=== PATIENT | female | born 1980 | race Hispanic/Latino ===

== ENCOUNTER 2024-09-12 06:27 | Emergency (ER) | payer BC, SELFPAY ==
[2024-09-12 07:02] LABS: Absolute Eosinophils 0.2 K/uL (0-0.5); Absolute Lymphocytes (CBC) 2.3 K/uL (0.7-4.9); Absolute Monocytes 0.5 K/uL (0.1-1.3); Absolute Neutrophil 4.7 K/uL (1.8-8.0); Basophils % 0.4 % (0-1.3); Eosinophils % 2.5 % (0-4.4); Hematocrit 41.6 % (36.0-45.0); Lymphocytes % 29.5 % (15.3-44.8); MCH 32.1 pg (27.0-35.0); MCHC 33.8 g/dL (32.0-36.0); MCV 94.9 fL (80-100); MPV 8.6 fL (7.6-11.3); Monocytes % 6.6 % (3.3-12.3); Platelets 345 thou/uL (152-406); RBC Red Blood Cell Count 4.38 M/uL (3.86-4.86); Red Cell Distribution Width 13.9 % (12.1-15.2)
[2024-09-12 07:11] LABS: Specific Gravity 1.024 (1.005-1.030); Sqamous Epithelial <5 /HPF (None Seen); Urine Bacteria <20 /HPF (<20); Urine Bilirubin NEGATIVE (Negative); Urine Blood 2+ (Negative); Urine Clarity Turbid (Clear); Urine Color Yellow (Yellow); Urine Crystals Unidentified Few /HPF (None Seen); Urine Culture Reflex Order NOT NEEDED; Urine Glucose NEGATIVE (Negative); Urine Ketones 1+ (Negative); Urine Microscopic Reflex YN ORDER UMIC; Urine Mucus 2+ /HPF (None Seen); Urine Nitrite NEGATIVE (Negative); Urine Protein TRACE (Negative); Urine Urobilinogen Normal (Normal); Urine WBC <5 /HPF (<5)
[2024-09-12 07:12] LABS: Specific Gravity 1.024 (1.005-1.030)
[2024-09-12 07:15] LABS: Albumin 3.8 g/dL (3.4-5.0); Albumin/Globulin Ratio 1.1 (1.1-1.8); Anion Gap 9.4 mEq/L (5.0-15.0); Bilirubin Total 0.5 mg/dL (0.2-1.0); Globulin 3.4 g/dL (2.3-3.5); Potassium 3.4 mEq/L (3.5-5.1); Protein, Total 7.2 g/dL (6.4-8.2)
--- NOTE | 2024-09-12 07:37 | RAD REPORT ---
EXAMINATION: CT ABDOMEN AND PELVIS WITH CONTRAST CLINICAL INDICATION: ABD PAIN TECHNIQUE: CT abdomen and pelvis was performed, after the administration of IV contrast, as per [facility] protocol. Axial, sagittal and coronal reconstructions were obtained. One or more of the following dose reduction techniques were used: Automated exposure control, adjustment of the mA and k V according to patient size, and iterative reconstruction. Unless otherwise specified, incidental findings do not require dedicated imaging follow-up. COMPARISON: No prior exam. FINDINGS: LOWER CHEST: The visualized lung bases are clear. LIVER: Normal in size and contour. No focal lesion. Grossly unremarkable gallbladder. SPLEEN: Normal size. No focal lesion. PANCREAS: No mass, ductal dilation, or prem-pancreatic fluid. ADRENALS: Normal; no mass. KIDNEYS: Normal size and contour. No hydronephrosis. GASTROINTESTINAL TRACT: No evidence of free air, significant intra-abdominal free fluid, bowel obstru ction or abscess. APPENDIX: Normal appendix. LYMPH NODES: No lymphadenopathy. MUSCULOSKELETAL: No acute or suspicious osseous abnormality. ADDITIONAL FINDINGS: None. IMPRESSION: No acute or concerning abnormalities seen in the abdomen or pelvis.
--- NOTE | 2024-09-12 07:44 | RAD REPORT ---
EXAM: Right upper quadrant ultrasound. CLINICAL HISTORY: ABD PAIN COMPARISON: CT study same date FINDINGS: Gallbladder: Normal. Bile ducts: No intrahepatic or extrahepatic biliary dilatation. Common bile duct measures 6 mm. Limited imaging of the liver shows no concerning finding. IMPRESSION: Unremarkable exam.
--- NOTE | 2024-09-12 07:55 | EDPHYS ---
Physician Documentation [facility] Chris Name: Ashley Huang Age: 43 yrs Sex: Female : 1980 Arrival Date: 09/12/2024 Time: 06:27 Bed 7 Private MD: ED Physician Valdemar Jefferson HPI: 09/12 06:51 This 43 yrs old Female presents to ER via Unassigned with complaints of rn Abdominal Pain, Low Back Pain, Nausea/Vomiting. 06:51 The patient presents with abdominal pain in the epigastric area, in the right upper rn quadrant. Onset: The symptoms/episode began/occurred 12 day(s) ago. The symptoms do not radiate. Associated signs and symptoms: Pertinent positives: nausea, Pertinent negatives: blood in stools, fever. Modifying factors: The symptoms are alleviated by nothing, the symptoms are aggravated by food, spicy food, touching the area. Severity of pain: At its worst the pain was moderate in the emergency department the pain has improved. The patient has experienced similar episodes in the past. The patient has not recently seen a physician. Patient reports right upper quadrant and epigastric abdominal pain that began 12 days ago. Is intermittent, worse with food and spicy food and touching area. Associated with nausea. No blood in stool. No fever or chills. Has had gallstones in the past but declined surgery at that time. This feels similar per patient.. 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 - Infectious Disease History:: Denies. - Family history:: not pertinent. - Social history:: Smoking status: Patient denies any tobacco usage or history of. - Hospitalizations: : No recent hospitalization is reported. ROS: 06:51 Constitutional: Negative for fever, chills, and weight loss, Cardiovascular: Negative rn for chest pain, palpitations, and edema, Respiratory: Negative for shortness of breath, cough, wheezing, and pleuritic chest pain, Abdomen/GI: Positive for abdominal pain with nausea Back: Negative for injury and pain, : Negative for injury, bleeding, discharge, and swelling, MS/Extremity: Negative for injury and deformity, Skin: Negative for injury, rash, and discoloration, Neuro: Negative for headache, weakness, numbness, tingling, and seizure, Exam: 06:51 Constitutional: This is a well developed, well nourished patient who is awake, alert, rn and in no acute distress. Cardiovascular: Regular rate and rhythm. No pulse deficits. Respiratory: No increased work of breathing, no retractions or nasal flaring. Abdomen/GI: Soft, tender right upper quadrant, negative Dumont, slight tenderness epigastrium as well. No distention. Vital Signs: 06:47 BP 141 / 99; Pulse 93; Resp 18; Temp 97.1; Pulse Ox 99% ; Weight 90.72 kg; Height 5 ft. vc1 1 in. ; Pain 8/10; 08:13 BP 138 / 87; Pulse 75; Resp 16; Pulse Ox 99% ; Pain 8/10; ll1 08:42 BP 131 / 80; Pulse 73; Resp 16; Pulse Ox 100% ; ll1 09:50 BP 123 / 79; Pulse 77; Resp 16; Pulse Ox 100% ; ll1 06:47 Body Mass Index 37.79 (90.72 kg, 154.94 cm) vc1 06:47 Pain Scale: Adult vc1 08:13 Pain Scale: Adult ll1 MDM: 06:37 Medical Screening Exam initiated rn 07:07 Data reviewed: vital signs, nurses notes. ED course: Patient signed out to me by ec2 previous physician, in brief arrives today for abdominal pain and back pain. Plans to follow-up lab work, ultrasonography and CT scan of the chest. Differential diagnosis considered include processes such as pancreatitis, gallbladder pathology. 07:22 ED course: Metabolic profile shows slight hypokalemia 3.4. Urine is noninfectious ec2 appearing. Lipase within normal ranges. testing negative. CBC reassuring.. 07:54 ED course: Ultrasound and CT imaging are negative. On reassessment patient is ec2 well-appearing no acute distress. Suspect possible gastritis. Will have the patient follow-up with GI. Return precautions given.. 10:11 ED course: Patient expressed dissatisfaction regarding normal lab work and ec2 ultrasonography, I instructed her that she needs a follow-up with her primary care doctor as well as her general surgeon electively as there is no emergent process identified. Patient ultimately dissatisfied, hostile and appropriate for discharge. 09/12 06:40 Order name: CBC with Diff; Complete Time: 07:05 rn 09/12 06:40 Order name: CMP; Complete Time: 07:21 rn 09/12 06:40 Order name: Lipase; Complete Time: 07:21 rn 09/12 06:40 Order name: Test, Urine; Complete Time: 07:21 rn 09/12 06:40 Order name: Urinalysis w/ reflexes; Complete Time: 07:21 rn 09/12 06:40 Order name: CT Abd/Pelvis - IV Contrast Only; Complete Time: 07:50 rn 09/12 06:50 Order name: US Abdomen Limited; Complete Time: 07:50 rn 09/12 06:40 Order name: IV Saline Lock; Complete Time: 06:48 rn 09/12 06:40 Order name: Labs collected and sent; Complete Time: 06:48 rn Administered Medications: 08:13 Drug: Ketorolac IVP 15 mg IVP once {Note: pain 8/10.} Route: IVP; Site: right ll1 antecubital; 08:43 Follow up: Response: No adverse reaction ll1 Disposition Summary: 09/12/24 07:54 Discharge Ordered Notes: Location: Home ec2 Condition: Stable ec2 Diagnosis - Upper abdominal pain, unspecified ec2 Followup: ec2 - With: Private Physician - When: - Reason: Re-evaluation by your physician Discharge Instructions: - Discharge Summary Sheet ec2 - Abdominal Pain, Adult ec2 Forms: - Work release form ll1 - Medication Reconciliation Form ec2 - Antibiotic Education ec2 - Prescription Opioid Use ec2 - Patient Portal Instructions ec2 - Leadership Thank You Letter ec2 Prescriptions: - Zofran 4 mg Oral Tablet - take 1 tablet ORAL route every 12 hours As needed; 20 tablet; Refills: 0, ec2 Product Selection Permitted - Pepcid 20 mg Oral Tablet - take 1 tablet ORAL route once daily; 20 tablet; Refills: 0, Product Selection ec2 Permitted Signatures: Dispatcher [employer] EDWilbert Lockhart MD MD rn Lewis, Lynsay, RN RN ll1 Nehal Gusman RN RN vc1 Valdemar Jefferson MD MD ec2 Corrections: (The following items were deleted from the chart) 06:54 06:51 PMHx: ECTOPIC; vc1 vc1
--- NOTE | 2024-09-12 07:55 | ER ---
Nurse's Notes [facility] Alan Name: Ashley Huang Age: 43 yrs Sex: Female : 1980 Arrival Date: 09/12/2024 Time: 06:27 Bed 7 Private MD: Diagnosis: Upper abdominal pain, unspecified Presentation: 09/12 06:47 Chief complaint: Patient states: NAUSEA/VOMITING, BILATERAL BACK PAIN THAT RADIATES UP vc1 BACK, RIGHT UPPER ABDOMINAL PAIN. Coronavirus screen: Client denies travel out of the [place] in the last 14 days. At this time, the client does not indicate any symptoms associated with coronavirus-19. Ebola Screen: Patient negative for fever greater than or equal to 101.5 degrees Fahrenheit, and additional compatible Ebola Virus Disease symptoms Patient denies exposure to infectious person. Patient denies travel to an Ebola-affected area in the 21 days before illness onset. No symptoms or risks identified at this time. Initial Sepsis Screen: Does the patient meet any 2 criteria? No. Patient's initial sepsis screen is negative. Does the patient have a suspected source of infection? No. Patient's initial sepsis screen is negative. Risk Assessment: Do you want to hurt yourself or someone else? Patient reports no desire to harm self or others. Onset of symptoms was August 31, 2024. Care prior to arrival: None. Activity prior to arrival: None. Mechanism of Injury: No Mechanism of Injury. Transition of care: patient was not received from another setting of care. 06:47 Method Of Arrival: Ambulatory vc1 06:47 Acuity: ALIZE 3 vc1 Triage Assessment: 06:55 General: Appears in no apparent distress. uncomfortable, well groomed, well developed, vc1 well nourished, Behavior is calm, cooperative, appropriate for age. Pain: Complains of pain in left low back and right low back Pain radiates to left subscapular area, right subscapular area and right upper quadrant Pain currently is 8 out of 10 on a pain scale. Quality of pain is described as pressure. EENT: No deficits noted. No signs and/or symptoms were reported regarding the EENT system. Neuro: Level of Consciousness is awake, alert, obeys commands, Oriented to person, place, time, situation, Appropriate for age. Cardiovascular: Heart tones S1 S2 Capillary refill < 3 seconds Patient's skin is warm and dry. Respiratory: Airway is patent Respiratory effort is even, unlabored, Respiratory pattern is regular, symmetrical. GI: Abdomen is round non-distended, Reports upper abdominal pain, nausea, vomiting. : Reports burning with urination. Derm: Skin is intact, is healthy with good turgor, Skin is dry, Skin is normal, Skin temperature is warm. Musculoskeletal: Circulation, motion, and sensation intact. Range of motion: intact in all extremities. 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 - Infectious Disease History:: Denies. - Family history:: not pertinent. - Social history:: Smoking status: Patient denies any tobacco usage or history of. - Hospitalizations: : No recent hospitalization is reported. Screenin:56 [facility] ED Fall Risk Assessment (Adult) History of falling in the last 3 months, jj7 including since admission No falls in past 3 months (0 pts) Confusion or Disorientation No (0 pts) Intoxicated or Sedated No (0 pts) Impaired Gait No (0 pts) Mobility Assist Device Used No (0 pt) Altered Elimination No (0 pt) Score/Fall Risk Level 0 - 2 = Low Risk Oriented to surroundings, Maintained a safe environment, Educated pt \T\ family on fall prevention, incl call for assistance when getting out of bed, Assessed \T\ reinforced patient's understanding of fall precautions. Abuse screen: Denies threats or abuse. Nutritional screening: No deficits noted. Tuberculosis screening: No symptoms or risk factors identified. Assessment: 06:50 General: Appears in no apparent distress. comfortable, Behavior is calm, cooperative, jj7 appropriate for age. Pain: Complains of pain in back and abdomen. GI: Reports upper abdominal pain, nausea. GI: Bowel sounds present X 4 quads. Abd is soft X 4 quads Abdomen is tender to palpation in right upper quadrant. Musculoskeletal: Reports pain in back. 07:20 Reassessment: Patient is alert, oriented x 3, equal unlabored respirations, skin aa5 warm/dry/pink. Pt back from US and CT . 08:10 General: Appears uncomfortable, Behavior is calm, cooperative, appropriate for age. ll1 Pain: Complains of pain in abdomen Pain radiates to back Pain currently is 8 out of 10 on a pain scale. GI: Abdomen is round Reports upper abdominal pain. 08:10 Reassessment: Patient is trying to get a hold of Dr. Boyd before she is discharged. ll1 Dr. Jefferson informed. 08:30 Reassessment: No changes from previously documented assessment. Patient and/or family ll1 updated on plan of care and expected duration. Pain level reassessed. Patient is alert, oriented x 3, equal unlabored respirations, skin warm/dry/pink. Vital Signs: 06:47 BP 141 / 99; Pulse 93; Resp 18; Temp 97.1; Pulse Ox 99% ; Weight 90.72 kg; Height 5 ft. vc1 1 in. ; Pain 8/10; 08:13 BP 138 / 87; Pulse 75; Resp 16; Pulse Ox 99% ; Pain 8/10; ll1 08:42 BP 131 / 80; Pulse 73; Resp 16; Pulse Ox 100% ; ll1 09:50 BP 123 / 79; Pulse 77; Resp 16; Pulse Ox 100% ; ll1 06:47 Body Mass Index 37.79 (90.72 kg, 154.94 cm) vc1 06:47 Pain Scale: Adult vc1 08:13 Pain Scale: Adult ll1 ED Course: 06:29 Patient arrived in ED. jj6 06:37 Wilbert Glez MD is Attending Physician. rn 06:48 Inserted saline lock: 20 gauge in right antecubital area, using aseptic technique. jj7 Blood collected. Flushed with 10 mL NS. 06:51 Triage completed. vc1 06:54 Arm band placed on right wrist. vc1 06:56 Patient has correct armband on for positive identification. Bed in low position. Call jj7 light in reach. Adult w/ patient. Provided Education on: USE OF CALL CARPIO. 06:57 Patient has correct armband on for positive identification. Bed in low position. Call vc1 light in reach. Placed in gown. engine monitor on. Pulse ox on. NIBP on. 06:58 CBC with Diff Sent. jj7 06:58 CMP Sent. jj7 06:58 Lipase Sent. jj7 06:58 Test, Urine Sent. jj7 06:58 Urinalysis w/ reflexes Sent. jj7 07:03 Report given to SELENE CHIU AND MICHELINE RN. jj7 07:04 Attending Physician role handed off by Wilbert Glez MD ec2 07:04 Valdemar Jefferson MD is Attending Physician. ec2 07:15 US Abdomen Limited In Process Unspecified. EDMS 07:18 CT Abd/Pelvis - IV Contrast Only In Process Unspecified. EDMS 08:12 Selene Moran RN is Primary Nurse. ll1 08:42 No provider procedures requiring assistance completed. IV discontinued, intact, ll1 bleeding controlled, No redness/swelling at site. Pressure dressing applied. Administered Medications: 08:13 Drug: Ketorolac IVP 15 mg IVP once {Note: pain 8/10.} Route: IVP; Site: right ll1 antecubital; 08:43 Follow up: Response: No adverse reaction ll1 Medication: 06:58 VIS not applicable for this client. vc1 Outcome: 07:54 Discharge ordered by . ec2 08:42 Discharged to home ambulatory, ll1 08:42 Condition: stable 08:42 Discharge instructions given to patient, Instructed on discharge instructions, follow up and referral plans. medication usage, Demonstrated understanding of instructions, follow-up care, medications, Prescriptions given X 2, 09:50 Patient left the ED. ll1 Signatures: Dispatcher [employer] EDVA Wilbert Glez MD MD rn Calderon, Audri, RN RN aa5 Selene Moran RN RN ll1 Melany Velázquez jj6 Nehal Gusman RN RN vc1 Judd Ochoa RN RN jj7 Valdemar Jefferson MD MD ec2 Corrections: (The following items were deleted from the chart) 06:54 06:51 PMHx: ECTOPIC; vc1 vc1 08:19 08:10 GI: Abdomen is round Reports upper abdominal pain, ll1 ll1 10:23 08:43 Patient left the ED. ll1 ll1
[2024-09-12] MEDS ORDERED: KETOROLAC 30 MG/ML INJ ONE (08:07)
[2024-09-12 09:08] VITALS: TEMP 97.1
[2024-09-12 09:11] VITALS: BP 131/80; O2SAT 100
== END 2024-09-12 08:43 | disposition home or self-care (01) ==
LOC: ER 06:27
DX: R10.10 Upper abdominal pain, unspecified (principal)
CPT/HCPCS: 85025; 81001; 36415; 81025; 83690; 80053; 74177; 76705; 96374; 99285; Q9967